=== PATIENT | female | born 1985 | race American Indian/Alaskan Native ===

== ENCOUNTER 2017-03-09 06:49 | Emergency (ER) | payer SELFPAY ==
[2017-03-09 07:06] VITALS: BP 126/88
[2017-03-09 07:24] LABS: Basophils % (Auto) 0.2 % (0.0-1.8); Eosinophils % (Auto) 1.2 % (0.0-4.3); Hematocrit 42.7 % (30.3-42.9); Hemoglobin 14.8 gm/dl (10.1-14.3); Mean Corpuscular HGB Conc 35 % (30-34); Mean Corpuscular Hemoglobin 34 pg (28-32); Mean Corpuscular Volume 98 fl (79-97); Platelet Count 166 K/mm3 (140-440); Red Blood Count 4.34 M/mm3 (3.65-5.03); Red Cell Distribution Width 13.5 % (13.2-15.2); White Blood Count 9.7 K/mm3 (4.5-11.0)
[2017-03-09] MEDS ORDERED: DUONEB *Not for PRN Use IH ONE (07:36)
[2017-03-09] MEDS ORDERED: MOTRIN PO ONE (07:36)
[2017-03-09] MEDS ORDERED: DELTASONE PO ONE (07:37)
[2017-03-09 07:38] LABS: Anion Gap 18 mmol/L; BUN/Creatinine Ratio 18.57; Blood Urea Nitrogen 13 mg/dL (7-17); Calcium 9.2 mg/dL (8.4-10.2); Carbon Dioxide 23 mmol/L (22-30); Glucose 93 mg/dL (65-100); Potassium 4.6 mmol/L (3.6-5.0); Sodium 140 mmol/L (137-145)
--- NOTE | 2017-03-09 07:45 | Emergency Department Report ---
- General Chief Complaint: Upper Respiratory Infection Stated Complaint: FEVER/COLD SX Time Seen by Provider: 03/09/17 07:24 Source: patient Mode of arrival: Ambulatory Limitations: No Limitations - History of Present Illness Initial Comments: 31-year-old female past medical history smoker presents with complaint of 3 days of malaise coughing nasal congestion. Patient states that she feels more tired than usual. Denies any nausea or vomiting. States she has had sick contacts at work with similar symptoms. Awake alert and oriented 3 nontoxic appearing. MD Complaint: fever, cough, rhinorrhea, nasal congestion Onset/Timin -: days(s) Severity: mild Consistency: intermittent Improves With: nothing Context: sick contacts (at work w/ uri symptoms) Associated Symptoms: fever, chills, cough Treatments Prior to Arrival: "cold medicine" - Related Data Previous Rx's Medication Instructions Recorded Last Taken Type ALBUTEROL Inhaler [ProAir HFA 1 puff IH Q4H PRN #1 inha 03/09/17 Unknown Rx Inhaler] Amoxicillin/K Clav Tab [Augmentin 1 tab PO Q12HR #14 tab 03/09/17 Unknown Rx 875 mg] Fluticasone [Flonase] 1 spray NS QDAY PRN #1 bottle 03/09/17 Unknown Rx Naproxen [Naprosyn TAB] 375 mg PO BID PRN #20 tablet 03/09/17 Unknown Rx predniSONE [Deltasone] 40 mg PO QDAY #10 tab 03/09/17 Unknown Rx Allergies Allergy/AdvReac Type Severity Reaction Status Date / Time No Known Allergies Allergy Unverified 04/29/13 11:15 ED Review of Systems ROS: Stated complaint: FEVER/COLD SX Other details as noted in HPI Constitutional: fever. denies: chills Eyes: denies: eye pain, eye discharge, vision change ENT: denies: ear pain, throat pain Respiratory: cough. denies: shortness of breath, wheezing Cardiovascular: denies: chest pain, palpitations Endocrine: no symptoms reported Gastrointestinal: denies: abdominal pain, nausea, diarrhea Genitourinary: denies: urgency, dysuria, discharge Musculoskeletal: denies: back pain, joint swelling, arthralgia Skin: denies: rash, lesions Neurological: denies: headache, weakness, paresthesias Psychiatric: denies: anxiety, depression Hematological/Lymphatic: denies: easy bleeding, easy bruising ED Past Medical Hx - Past Medical History Previous Medical History?: No - Surgical History Past Surgical History?: Yes Additional Surgical History: skin grafts - Social History Smoking Status: Current Every Day Smoker Substance Use Type: None - Medications Home Medications: Home Medications Medication Instructions Recorded Confirmed Last Taken Type ALBUTEROL Inhaler [ProAir HFA 1 puff IH Q4H PRN #1 inha 03/09/17 Unknown Rx Inhaler] Amoxicillin/K Clav Tab [Augmentin 1 tab PO Q12HR #14 tab 03/09/17 Unknown Rx 875 mg] Fluticasone [Flonase] 1 spray NS QDAY PRN #1 bottle 03/09/17 Unknown Rx Naproxen [Naprosyn TAB] 375 mg PO BID PRN #20 tablet 03/09/17 Unknown Rx predniSONE [Deltasone] 40 mg PO QDAY #10 tab 03/09/17 Unknown Rx ED Physical Exam - General Limitations: No Limitations General appearance: alert, in no apparent distress - Head Head exam: Present: atraumatic, normocephalic - Eye Eye exam: Present: normal appearance, PERRL, EOMI - ENT ENT exam: Present: mucous membranes moist - Neck Neck exam: Present: normal inspection, full ROM - Respiratory Respiratory exam: Present: normal lung sounds bilaterally. Absent: respiratory distress - Cardiovascular Cardiovascular Exam: Present: regular rate, normal rhythm. Absent: systolic murmur, diastolic murmur, rubs, gallop - GI/Abdominal GI/Abdominal exam: Present: soft, normal bowel sounds - Extremities Exam Extremities exam: Present: normal inspection, normal capillary refill - Back Exam Back exam: Present: normal inspection - Neurological Exam Neurological exam: Present: alert, oriented X3, CN II-XII intact, normal gait - Psychiatric Psychiatric exam: Present: normal affect, normal mood - Skin Skin exam: Present: warm, dry, intact, normal color. Absent: rash ED Course Vital Signs 03/09/17 03/09/17 03/09/17 07:02 07:47 07:53 Temperature 98.8 F Pulse Rate 95 H Pulse Rate [ 90 88 Bilateral Upper Lobe] Respiratory 15 Rate Respiratory 18 18 Rate [Bilateral Upper Lobe] Blood Pressure 126/88 O2 Sat by Pulse 98 Oximetry ED Medical Decision Making - Lab Data Result diagrams: 03/09/17 07:08 03/09/17 07:08 - Medical Decision Making A/P: Acute sinusitis 1-Flonase, Claritin, naproxen 2-albuterol, prednisone, course of Augmentin 3-primary care follow-up 4- labs and x-ray within normal limits Critical care attestation.: If time is entered above; I have spent that time in minutes in the direct care of this critically ill patient, excluding procedure time. ED Disposition Clinical Impression: Acute sinusitis Qualifiers: Sinusitis location: frontal Recurrence: non-recurrent Qualified Code(s): J01.10 - Acute frontal sinusitis, unspecified Disposition: TO HOME OR SELFCARE Is pt being admited?: No Does the pt Need Aspirin: No Condition: Stable Instructions: Sinusitis (ED), Reactive Airways Disease (ED) Prescriptions: ALBUTEROL Inhaler [ProAir HFA Inhaler] 1 puff IH Q4H PRN #1 inha PRN Reason: Cough Amoxicillin/K Clav Tab [Augmentin 875 mg] 1 tab PO Q12HR #14 tab Fluticasone [Flonase] 1 spray NS QDAY PRN #1 bottle PRN Reason: Nasal Congestion Naproxen [Naprosyn TAB] 375 mg PO BID PRN #20 tablet PRN Reason: Fever predniSONE [Deltasone] 40 mg PO QDAY #10 tab Referrals: [facility] [Provider Group] - 3-5 Days [facility] [Outside] - 3-5 Days Forms: Work/School Release Form(ED) Time of Disposition: 08:21
--- NOTE | 2017-03-09 08:22 | XRay Report ---
ROUTINE CHEST, TWO VIEWS: HISTORY: Cough, upper respiratory infection. The trachea, heart, mediastinal contour, lung patel and bony thorax are unremarkable. IMPRESSION: Unremarkable chest x-ray.
== END 2017-03-09 08:29 | disposition home or self-care (01) ==
LOC: ED 06:49
DX: J01.90 Acute sinusitis, unspecified (principal); F17.210 Nicotine dependence, cigarettes, uncomplicated
CPT/HCPCS: 36415; 71020; 80048; 84484; 84703; 85025; 87400; 93005; 93010; 94640; 99284; J7512

== ENCOUNTER 2017-06-30 01:04 | Emergency (ER) | payer OTHER ==
[2017-06-30 02:38] LABS: Hematocrit 42.2 % (30.3-42.9); Hemoglobin 14.4 gm/dl (10.1-14.3); Mean Corpuscular HGB Conc 34 % (30-34); Mean Corpuscular Hemoglobin 34 pg (28-32); Mean Corpuscular Volume 99 fl (79-97); Platelet Count 157 K/mm3 (140-440); Red Blood Count 4.25 M/mm3 (3.65-5.03); Red Cell Distribution Width 13.9 % (13.2-15.2); White Blood Count 3.7 K/mm3 (4.5-11.0)
[2017-06-30 02:51] LABS: Alanine Aminotransferase 9 units/L (7-56); Albumin 4.4 g/dL (3.9-5); Albumin/Globulin Ratio 1.6 %; Alkaline Phosphatase 49 units/L (35-129); Anion Gap 17 mmol/L; BUN/Creatinine Ratio 23; Bilirubin,Total < 0.20 mg/dL (0.1-1.2); Blood Urea Nitrogen 14 mg/dL (7-17); Calcium 9.2 mg/dL (8.4-10.2); Carbon Dioxide 24 mmol/L (22-30); Chloride 100.1 mmol/L (98-107); Glucose 86 mg/dL (65-100); Lipase 33 units/L (13-60); Potassium 4.4 mmol/L (3.6-5.0); Sodium 137 mmol/L (137-145); Total Protein 7.1 g/dL (6.3-8.2)
--- NOTE | 2017-06-30 03:01 | XRay Report ---
FINAL REPORT PROCEDURE: XR CHEST ROUTINE 2V TECHNIQUE: PA and lateral chest radiographs were obtained. CPT 99380 HISTORY: Cough, Fever, Preg Test Ordered COMPARISON: No prior studies are available for comparison. FINDINGS: Heart: Normal. Mediastinum/Vessels: Normal. Lungs/Pleural space: Normal. Bony thorax: No acute osseous abnormality. Other: IMPRESSION: Normal examination.
[2017-06-30 03:38] LABS: Basophils % (Manual) 0 % (0.0-1.8); Blastocytes % (Manual) 0 %
[2017-06-30 03:40] LABS: Anisocytosis 1+; Diff Status Complete; Platelet Estimate Consistent w Auto
[2017-06-30 04:22] LABS: Bilirubin,Urine NEG (Negative); Blood,Urine NEG (Negative); Ketones,Urine TR mg/dL (Negative); Leukocyte Esterase,Urine MOD (Negative); Mucus,Urine 2+ /HPF; Nitrite,Urine NEG (Negative)
--- NOTE | 2017-06-30 04:51 | Emergency Department Report ---
HPI - General Chief Complaint: Urogenital-Female Time Seen by Provider: 06/30/17 04:50 - HPI HPI: Patient reports that she has nonproductive cough 3 days. Lower back pain 4 days. She reports fever chills, sweats body ache nausea without vomiting and some diarrhea yesterday but none today. She reports headache. Headache and pain is 2 out of 10 and aching. [place] she [place] in contact with many sick people. Denies any chest pain or shortness of breath. Patient denies any medical problems. Last treated on 03/09/2017 for bronchitis and upper respiratory infection. She says she is using over-the- counter cough and cold but it's not helping. Pain is better at rest and worse with moving around. ED Past Medical Hx - Past Medical History Previous Medical History?: No - Surgical History Past Surgical History?: Yes Additional Surgical History: skin grafts - Family History Family history: hypertension - Social History Smoking Status: Current Every Day Smoker Substance Use Type: Alcohol, Marijuana - Medications Home Medications: Home Medications Medication Instructions Recorded Confirmed Last Taken Type ALBUTEROL Inhaler [ProAir HFA 1 puff IH Q4H PRN #1 inha 03/09/17 Unknown Rx Inhaler] Amoxicillin/K Clav Tab [Augmentin 1 tab PO Q12HR #14 tab 03/09/17 Unknown Rx 875 mg] Naproxen [Naprosyn TAB] 375 mg PO BID PRN #20 tablet 03/09/17 Unknown Rx predniSONE [Deltasone] 40 mg PO QDAY #10 tab 03/09/17 Unknown Rx Cetirizine HCl [ZyrTEC] 10 mg PO QAM 14 Days #14 capsule 06/30/17 Unknown Rx Fluticasone [Flonase] 1 spray NS QDAY PRN 1 Days #1 06/30/17 Unknown Rx bottle Ibuprofen [Motrin] 600 mg PO Q8H PRN 4 Days #12 tablet 06/30/17 Unknown Rx Sulfamethoxazole/Trimethoprim 1 each PO BID 7 Days #14 tablet 06/30/17 Unknown Rx [Bactrim DS TAB] ED Review of Systems ROS: Stated complaint: FEVER; BODYACHES; H/A Other details as noted in HPI Comment: All other systems reviewed and negative Constitutional: chills, fever Eyes: denies: eye pain, eye discharge ENT: congestion. denies: ear pain, throat pain Respiratory: cough. denies: orthopnea, shortness of breath, SOB with exertion, SOB at rest, stridor, wheezing Cardiovascular: denies: chest pain, palpitations, dyspnea on exertion, edema, syncope, paroxysmal nocturnal dyspnea Gastrointestinal: nausea, diarrhea. denies: abdominal pain, vomiting, constipation, hematemesis, melena, hematochezia Genitourinary: abnormal menses. denies: urgency, dysuria, frequency, hematuria , discharge, dyspareunia Musculoskeletal: back pain, myalgia. denies: joint swelling, arthralgia Skin: denies: rash Neurological: headache. denies: weakness, numbness, paresthesias, confusion, abnormal gait, vertigo Physical Exam - Physical Exam Vital Signs: Vital Signs 06/30/17 01:25 Temperature 98.9 F Pulse Rate 88 Respiratory 16 Rate Blood Pressure 130/80 [Right] O2 Sat by Pulse 99 Oximetry General: This is a 31-year-old female well-nourished well-developed in no acute distress. Physical Exam: Head: Normocephalic, atraumatic, Eyes: Biateral pupils equal and reactive to light, bilateral EOM intact.. Bilateral conjunctival and sclera without injection, normal accommodation. No nystagmus Mouth: Moist, no pharyngeal exudate or erythema. Uvula is midline and oral airways patent. No peritonsillar abscess. Ears:Guzman TM congested without erythema, bilaterally EAC without any redness or drainage. No mastoid bone tenderness. Nose: Guzman nasal mucosa congested with edema and clear drainage. No maxillary or frontal sinus tenderness. Neck: Supple, No Cervical adenopathy, full range of motion and no C-spine tenderness. Cardiovascular: S1, S2. Regular rate and Regular rhythm. No murmur. Capillary refill is less then 3 seconds. Lungs: Clear to auscultate bilaterally. No rhonchi, wheezes or rales. No chest wall tenderness. No chest contusion. No bruising to chest. Positive dry cough MSK: Strength 5/5 in all extremities. No joint deformity or crepitus. Normal inspection. Full range of motion to all extremities. No laceration, abrasion or ecchymotic area noted. Patient able to fully flex and extend bilateral knees without any difficulties. Bilateral knees nontender to palpate. Abdomen: Non-tender to palpate in all quadrants, no guarding or rebound tenderness, positive bowel sounds in all quadrants. No CVA tenderness. No hernia, bruit or mass. No rigidity or distention. Extremities: No clubbing, cyanosis or edema. +2 pulses. No neurovascular compromise Skin: Clean, dry and intact. No rash or lesions. Neurological: GCS at 15, Pt is alert and oriented 3 speech is clear period. Bilateral hand supervisor rod placing strong and equal. Normal gait. Negative Romberg and no pronator drift. Normal Reflexes. No motor or sensory deficit Back: No vertebral tenderness, no paraspinal tenderness. Normal inspection and full range of motion Ambulates without any difficulties. Psych: Normal mood and behavior ED Course Vital Signs 06/30/17 01:25 Temperature 98.9 F Pulse Rate 88 Respiratory 16 Rate Blood Pressure 130/80 [Right] O2 Sat by Pulse 99 Oximetry - Reevaluation(s) Reevaluation #1: 06/30/17 06:02 stable throughout ED stay she was able to tolerate oral liquids without any difficulties. Patient had no vomiting or diarrhea while in the emergency room. She is nontoxic in appearance. Her vital signs are stable. ED Medical Decision Making - Lab Data Result diagrams: 06/30/17 02:09 06/30/17 02:09 Lab Results 06/30/17 06/30/17 06/30/17 Range/Units 02:09 02:09 02:09 WBC 3.7 L (4.5-11.0) K/mm3 RBC 4.25 (3.65-5.03) M/mm3 Hgb 14.4 H (10.1-14.3) gm/dl Hct 42.2 (30.3-42.9) % MCV 99 H (79-97) fl MCH 34 H (28-32) pg MCHC 34 (30-34) % RDW 13.9 (13.2-15.2) % Plt Count 157 (140-440) K/mm3 [place] % (Auto) Proof Clerk Add Manual Diff Complete Total Counted 100 Seg Neutrophils % Proof Clerk Seg Neuts % (Manual) 18.0 L (40.0-70.0) % Band Neutrophils % 12.0 % Lymphocytes % (Manual) 45.0 H (13.4-35.0) % Reactive Lymphs % (Man) 2.0 % Monocytes % (Manual) 19.0 H (0.0-7.3) % Eosinophils % (Manual) 4.0 (0.0-4.3) % Basophils % (Manual) 0 (0.0-1.8) % Metamyelocytes % 0 % Myelocytes % 0 % Promyelocytes % 0 % Blast Cells % 0 % Nucleated RBC % Not Reportable Seg Neutrophils # Man 0.7 L (1.8-7.7) K/mm3 Band Neutrophils # 0.4 K/mm3 Lymphocytes # (Manual) 1.7 (1.2-5.4) K/mm3 Abs React Lymphs (Man) 0.1 K/mm3 Monocytes # (Manual) 0.7 (0.0-0.8) K/mm3 Eosinophils # (Manual) 0.1 (0.0-0.4) K/mm3 Basophils # (Manual) 0.0 (0.0-0.1) K/mm3 Metamyelocytes # 0.0 K/mm3 Myelocytes # 0.0 K/mm3 Promyelocytes # 0.0 K/mm3 Blast Cells # 0.0 K/mm3 WBC Morphology Not Reportable Hypersegmented Neuts Not Reportable Hyposegmented Neuts Not Reportable Hypogranular Neuts Not Reportable Smudge Cells Not Reportable Toxic Granulation Not Reportable Toxic Vacuolation Not Reportable Dohle Bodies Not Reportable Pelger-Huet Anomaly Not Reportable Sussy Rods Not Reportable Platelet Estimate Consistent w auto Clumped Platelets Not Reportable Plt Clumps, EDTA Not Reportable Large Platelets Not Reportable Giant Platelets Not Reportable Platelet Satelliting Not Reportable Plt Morphology Comment Not Reportable RBC Morphology Not Reportable Dimorphic RBCs Not Reportable Polychromasia Not Reportable Hypochromasia Not Reportable Poikilocytosis Not Reportable Anisocytosis 1+ Microcytosis Not Reportable Macrocytosis Not Reportable Spherocytes Not Reportable Pappenheimer Bodies Not Reportable Sickle Cells Not Reportable Target Cells Not Reportable Tear Drop Cells Not Reportable Ovalocytes Not Reportable Helmet Cells Not Reportable [place] Bodies Not Reportable [place] Rings Not Reportable [place] Cells Not Reportable Bite Cells Not Reportable Crenated Cell Not Reportable Elliptocytes Not Reportable Acanthocytes (Spur) Not Reportable Rouleaux Not Reportable Hemoglobin C Crystals Not Reportable Schistocytes Not Reportable Malaria parasites Not Reportable Bob Bodies Not Reportable Hem Pathologist Commnt No Sodium 137 (137-145) mmol/L Potassium 4.4 (3.6-5.0) mmol/L Chloride 100.1 (98-107) mmol/L Carbon Dioxide 24 (22-30) mmol/L Anion Gap 17 mmol/L BUN 14 (7-17) mg/dL Creatinine 0.6 L (0.7-1.2) mg/dL Estimated GFR > 60 ml/min BUN/Creatinine Ratio 23 % Glucose 86 (65-100) mg/dL Lactic Acid (0.7-2.0) mmol/L Calcium 9.2 (8.4-10.2) mg/dL Total Bilirubin < 0.20 (0.1-1.2) mg/dL AST 17 (5-40) units/L ALT 9 (7-56) units/L Alkaline Phosphatase 49 (35-129) units/L Total Protein 7.1 (6.3-8.2) g/dL Albumin 4.4 (3.9-5) g/dL Albumin/Globulin Ratio 1.6 % Lipase 33 (13-60) units/L HCG, Qual Negative (Negative) Urine Color (Yellow) Urine Turbidity (Clear) Urine pH (5.0-7.0) Ur Specific Given (1.003-1.030) Urine Protein (Negative) mg/dL Urine Glucose (UA) (Negative) mg/dL Urine Ketones (Negative) mg/dL Urine Blood (Negative) Urine Nitrite (Negative) Urine Bilirubin (Negative) Urine Urobilinogen (<2.0) mg/dL Ur Leukocyte Esterase (Negative) Urine WBC (Auto) (0.0-6.0) /HPF Urine RBC (Auto) (0.0-6.0) /HPF U Epithel Cells (Auto) (0-13.0) /HPF Urine Mucus /HPF 06/30/17 06/30/17 Range/Units 02:09 04:06 WBC (4.5-11.0) K/mm3 RBC (3.65-5.03) M/mm3 Hgb (10.1-14.3) gm/dl Hct (30.3-42.9) % MCV (79-97) fl MCH (28-32) pg MCHC (30-34) % RDW (13.2-15.2) % Plt Count (140-440) K/mm3 [place] % (Auto) Add Manual Diff Total Counted Seg Neutrophils % Seg Neuts % (Manual) (40.0-70.0) % Band Neutrophils % % Lymphocytes % (Manual) (13.4-35.0) % Reactive Lymphs % (Man) % Monocytes % (Manual) (0.0-7.3) % Eosinophils % (Manual) (0.0-4.3) % Basophils % (Manual) (0.0-1.8) % Metamyelocytes % % Myelocytes % % Promyelocytes % % Blast Cells % % Nucleated RBC % Seg Neutrophils # Man (1.8-7.7) K/mm3 Band Neutrophils # K/mm3 Lymphocytes # (Manual) (1.2-5.4) K/mm3 Abs React Lymphs (Man) K/mm3 Monocytes # (Manual) (0.0-0.8) K/mm3 Eosinophils # (Manual) (0.0-0.4) K/mm3 Basophils # (Manual) (0.0-0.1) K/mm3 Metamyelocytes # K/mm3 Myelocytes # K/mm3 Promyelocytes # K/mm3 Blast Cells # K/mm3 WBC Morphology Hypersegmented Neuts Hyposegmented Neuts Hypogranular Neuts Smudge Cells Toxic Granulation Toxic Vacuolation Dohle Bodies Pelger-Huet Anomaly Sussy Rods Platelet Estimate Clumped Platelets Plt Clumps, EDTA Large Platelets Giant Platelets Platelet Satelliting Plt Morphology Comment RBC Morphology Dimorphic RBCs Polychromasia Hypochromasia Poikilocytosis Anisocytosis Microcytosis Macrocytosis Spherocytes Pappenheimer Bodies Sickle Cells Target Cells Tear Drop Cells Ovalocytes Helmet Cells [place] Bodies [place] Rings [place] Cells Bite Cells Crenated Cell Elliptocytes Acanthocytes (Spur) Rouleaux Hemoglobin C Crystals Schistocytes Malaria parasites Bob Bodies Hem Pathologist Commnt Sodium (137-145) mmol/L Potassium (3.6-5.0) mmol/L Chloride (98-107) mmol/L Carbon Dioxide (22-30) mmol/L Anion Gap mmol/L BUN (7-17) mg/dL Creatinine (0.7-1.2) mg/dL Estimated GFR ml/min BUN/Creatinine Ratio % Glucose (65-100) mg/dL Lactic Acid 0.90 (0.7-2.0) mmol/L Calcium (8.4-10.2) mg/dL Total Bilirubin (0.1-1.2) mg/dL AST (5-40) units/L ALT (7-56) units/L Alkaline Phosphatase (35-129) units/L Total Protein (6.3-8.2) g/dL Albumin (3.9-5) g/dL Albumin/Globulin Ratio % Lipase (13-60) units/L HCG, Qual (Negative) Urine Color Yellow (Yellow) Urine Turbidity Clear (Clear) Urine pH 6.0 (5.0-7.0) Ur Specific Given 1.039 H (1.003-1.030) Urine Protein 30 mg/dl (Negative) mg/dL Urine Glucose (UA) Neg (Negative) mg/dL Urine Ketones Tr (Negative) mg/dL Urine Blood Neg (Negative) Urine Nitrite Neg (Negative) Urine Bilirubin Neg (Negative) Urine Urobilinogen 2.0 (<2.0) mg/dL Ur Leukocyte Esterase Mod (Negative) Urine WBC (Auto) 18.0 H (0.0-6.0) /HPF Urine RBC (Auto) 15.0 (0.0-6.0) /HPF U Epithel Cells (Auto) 7.0 (0-13.0) /HPF Urine Mucus 2+ /HPF Urine culture pending Strep test is negative Influenza A and B- - Radiology Data Radiology results: report reviewed Chest x-ray revealed no acute cardiopulmonary findings - Medical Decision Making ED course: She presented to the emergency room and multiple complaints. She was found to have acute cystitis without hematuria and ulcer upper respiratory tract infection. Patient's CBC stable except for a white count was low at 3.7 and other mildly abnormal components of CBC. CMP stable, test is negative, lactic acid is stable. Urinalysis positive for bacterial infection and cultures pending. Strep and influenza negative. Chest x-ray negative for any acute findings. I discussed patient her diagnostics and laboratory results and she voiced understanding. Patient orally challenge in emergency room had no episode of vomiting or diarrhea. She remained stable throughout ED course. Patient voices understanding of diagnosis, discharge instructions and treatment plan and to follow-up with her primary care physician in 5 days and if she does not have a primary care physician she can follow up at the [facility]. Patient discharged home with prescription for Bactrim DS, Motrin, Phenergan, Zyrtec and Flonase. Critical care attestation.: If time is entered above; I have spent that time in minutes in the direct care of this critically ill patient, excluding procedure time. ED Disposition Clinical Impression: Upper respiratory infection with cough and congestion, Nausea alone Acute cystitis Qualifiers: Hematuria presence: without hematuria Qualified Code(s): N30.00 - Acute cystitis without hematuria Disposition: TO HOME OR SELFCARE Is pt being admited?: No Does the pt Need Aspirin: No Condition: Stable Instructions: Upper Respiratory Infection (ED), Acute Cough (ED), Urinary Tract Infection in Women (ED), Acute Nausea and Vomiting (ED) Additional Instructions: follow-up with primary care physician in 4-5 days if he do not have a primary care physician follow-up with outside Medical Center Take medication as prescribed. Increase your fluid intake Prescriptions: Cetirizine HCl [ZyrTEC] 10 mg PO QAM 14 Days #14 capsule Fluticasone [Flonase] 1 spray NS QDAY PRN 1 Days #1 bottle PRN Reason: Nasal Congestion Ibuprofen [Motrin] 600 mg PO Q8H PRN 4 Days #12 tablet PRN Reason: Pain Sulfamethoxazole/Trimethoprim [Bactrim DS TAB] 1 each PO BID 7 Days #14 tablet Referrals: PRIMARY CAREMD [Primary Care Provider] - 07/04/17 [facility] [Outside] - 07/04/17 Forms: Work/School Release Form(ED)
[2017-06-30 06:21] VITALS: BP 110/79
== END 2017-06-30 06:21 | disposition home or self-care (01) ==
LOC: ED 01:04
DX: J06.9 Acute upper respiratory infection, unspecified (principal); N30.00 Acute cystitis without hematuria; F17.200 Nicotine dependence, unspecified, uncomplicated; F12.10 Cannabis abuse, uncomplicated
CPT/HCPCS: 36415; 71020; 80053; 81001; 82140; 83690; 84703; 85007; 85025; 87116; 87400; 87430; 99284

== ENCOUNTER 2019-06-30 01:02 | Emergency (ER) | payer SELFPAY ==
[2019-06-30 01:15] VITALS: BP 126/86
[2019-06-30] MEDS ORDERED: traMADol 50 MG TAB PO ONE (03:08)
[2019-06-30] MEDS ORDERED: CLINDAMYCIN 300 MG CAP PO ONE (03:08)
--- NOTE | 2019-06-30 03:14 | Emergency Department Report ---
<KOURTNEY CUI - Last Filed: 06/30/19 03:10> ED General Adult HPI - General Chief complaint: Urogenital-Female Stated complaint: BREAST PAIN Time Seen by Provider: 06/30/19 03:08 Source: patient Mode of arrival: Ambulatory Limitations: No Limitations - History of Present Illness Initial comments: pt is a 33 y/o aaf who presents left breast pain , states previous abscess to same, there is no drainage , no fever or chills. Onset/Timin -: days(s) Location: chest (left breast ) Radiation: non-radiation Severity scale (0 -10): 5 Consistency: intermittent Improves with: none Worsens with: none - Related Data Previous Rx's Medication Instructions Recorded Last Taken Type ALBUTEROL Inhaler (OR & NICU) 1 puff IH Q4H PRN #1 inha 03/09/17 Unknown Rx [ProAir HFA Inhaler] Amoxicillin/K Clav Tab [Augmentin 1 tab PO Q12HR #14 tab 03/09/17 Unknown Rx 875 mg] Naproxen [Naprosyn TAB] 375 mg PO BID PRN #20 tablet 03/09/17 Unknown Rx predniSONE [Deltasone] 40 mg PO QDAY #10 tab 03/09/17 Unknown Rx Cetirizine HCl [ZyrTEC] 10 mg PO QAM 14 Days #14 capsule 06/30/17 Unknown Rx Fluticasone [Flonase] 1 spray NS QDAY PRN 1 Days #1 06/30/17 Unknown Rx bottle Ibuprofen [Motrin] 600 mg PO Q8H PRN 4 Days #12 tablet 06/30/17 Unknown Rx Sulfamethoxazole/Trimethoprim 1 each PO BID 7 Days #14 tablet 06/30/17 Unknown Rx [Bactrim DS TAB] Clindamycin [Clindamycin CAP] 300 mg PO Q6H 10 Days #40 cap 06/30/19 Unknown Rx traMADoL [Ultram] 50 mg PO Q6HR PRN #12 tablet 06/30/19 Unknown Rx Allergies Allergy/AdvReac Type Severity Reaction Status Date / Time No Known Allergies Allergy Unverified 04/29/13 11:15 ED Review of Systems Constitutional: denies: chills, fever Eyes: denies: eye pain, eye discharge, vision change ENT: denies: ear pain, throat pain Respiratory: denies: cough, shortness of breath, wheezing Cardiovascular: denies: chest pain, palpitations Endocrine: no symptoms reported Gastrointestinal: denies: abdominal pain, nausea, vomiting, diarrhea Genitourinary: denies: urgency, dysuria, discharge Musculoskeletal: denies: back pain, joint swelling, arthralgia Skin: other (left breast pain ). denies: rash, lesions Neurological: denies: headache, weakness, paresthesias Psychiatric: as per HPI Hematological/Lymphatic: denies: easy bleeding, easy bruising ED Past Medical Hx - Past Medical History Previous Medical History?: No - Surgical History Past Surgical History?: Yes Additional Surgical History: skin grafts - Social History Smoking Status: Current Every Day Smoker Substance Use Type: Alcohol, Marijuana - Medications Home Medications: Home Medications Medication Instructions Recorded Confirmed Last Taken Type ALBUTEROL Inhaler (OR & NICU) 1 puff IH Q4H PRN #1 inha 03/09/17 Unknown Rx [ProAir HFA Inhaler] Amoxicillin/K Clav Tab [Augmentin 1 tab PO Q12HR #14 tab 03/09/17 Unknown Rx 875 mg] Naproxen [Naprosyn TAB] 375 mg PO BID PRN #20 tablet 03/09/17 Unknown Rx predniSONE [Deltasone] 40 mg PO QDAY #10 tab 03/09/17 Unknown Rx Cetirizine HCl [ZyrTEC] 10 mg PO QAM 14 Days #14 capsule 06/30/17 Unknown Rx Fluticasone [Flonase] 1 spray NS QDAY PRN 1 Days #1 06/30/17 Unknown Rx bottle Ibuprofen [Motrin] 600 mg PO Q8H PRN 4 Days #12 tablet 06/30/17 Unknown Rx Sulfamethoxazole/Trimethoprim 1 each PO BID 7 Days #14 tablet 06/30/17 Unknown Rx [Bactrim DS TAB] Clindamycin [Clindamycin CAP] 300 mg PO Q6H 10 Days #40 cap 06/30/19 Unknown Rx traMADoL [Ultram] 50 mg PO Q6HR PRN #12 tablet 06/30/19 Unknown Rx ED Physical Exam - General Limitations: No Limitations General appearance: alert, in no apparent distress - Head Head exam: Present: atraumatic, normocephalic - Eye Eye exam: Present: normal appearance, PERRL, EOMI - ENT ENT exam: Present: mucous membranes moist - Neck Neck exam: Present: normal inspection, full ROM. Absent: tenderness - Respiratory Respiratory exam: Present: normal lung sounds bilaterally, other (left breast pain nippe no drainage midl erythema no mass no axillary pain or tenderness ). Absent: respiratory distress, wheezes, rales, rhonchi, stridor, chest wall tenderness - Cardiovascular Cardiovascular Exam: Present: regular rate, normal heart sounds. Absent: tachycardia - GI/Abdominal GI/Abdominal exam: Present: soft, normal bowel sounds. Absent: distended, tenderness, guarding, rebound, rigid, bruit, hernia - Rectal Rectal exam: Present: deferred - Extremities Exam Extremities exam: Present: normal inspection, full ROM - Back Exam Back exam: Present: normal inspection, full ROM. Absent: CVA tenderness (R), CVA tenderness (L) - Neurological Exam Neurological exam: Present: alert, oriented X3 - Psychiatric Psychiatric exam: Present: normal affect, normal mood - Skin Skin exam: Present: warm, dry, intact, normal color. Absent: rash ED Medical Decision Making - Medical Decision Making this is a small breast abscess , will tx with clindamycin, ultram. follow up with breast surgeon ,Dr. Lopez Breast Surgeon. pt verbalized agreement and understanding of same. ED Disposition Clinical Impression: Abscess of breast Disposition: DC- TO HOME OR SELFCARE Is pt being admited?: No Does the pt Need Aspirin: No Condition: Stable Instructions: Abscess (ED) Prescriptions: Clindamycin [Clindamycin CAP] 300 mg PO Q6H 10 Days #40 cap traMADoL [Ultram] 50 mg PO Q6HR PRN #12 tablet PRN Reason: Pain Referrals: RISA LOPEZ MD [Staff Physician] - 3-5 Days Forms: Work/School Release Form(ED) Time of Disposition: 03:30 <ROSE MARIE MUNOZ P - Last Filed: 06/30/19 05:30> ED Review of Systems ROS: Stated complaint: BREAST PAIN Other details as noted in HPI ED Course Vital Signs 06/30/19 01:05 Temperature 98.6 F Pulse Rate 82 Respiratory 18 Rate Blood Pressure 126/86 O2 Sat by Pulse 99 Oximetry ED Medical Decision Making - Medical Decision Making Attestation: Available for consultation Critical care attestation.: If time is entered above; I have spent that time in minutes in the direct care of this critically ill patient, excluding procedure time. ED Disposition Is pt being admited?: No
== END 2019-06-30 03:44 | disposition home or self-care (01) ==
LOC: ED 01:02
DX: N61.1 Abscess of the breast and nipple (principal); F17.200 Nicotine dependence, unspecified, uncomplicated; F12.10 Cannabis abuse, uncomplicated; Z79.899 Other long term (current) drug therapy
CPT/HCPCS: 99282